=== PATIENT | male | born 1985 | race Native Hawaiian/Other Pacific Islander ===

== ENCOUNTER 2016-12-03 09:40 | Emergency (ER) | payer BC ==
--- NOTE | 2016-12-03 11:03 | ED Physician Documentation ---
History of Present Illness - Stated complaint Stated Complaint: SOA - Chief complaint Chief Complaint: Allergic Rx - Additonal information Additional information: hx from pt 30 male healthy - no hx HTN DM CAD etc approx 2 hr [employer] developed swelling to right side of neck and chest pressure and SOA no diaphoresis no NV no abd pain no leg swelling arrives very tachy but states he had several red bulls prior to arrival Review of Systems Constitutional: denies: Fever, Chills Ears: denies: Ear pain Throat: reports: Other (R sided sweliing posterior to R TMJ region). denies: Sore throat Cardiac: reports: Chest pain / pressure Respiratory: reports: Dyspnea GI: denies: Abdominal Pain Musculoskeletal: denies: Extremity pain, Extremity swelling Endocrine: denies: Easy bruising / bleeding Immunocompromised: denies: Immunocompromised PD PAST MEDICAL HISTORY - Past Medical History Past Medical History: Yes Other Past Medical History: tonsillitis - Past Surgical History Past Surgical History: No - Present Medications Home Medications: Ambulatory Orders Medication Instructions Recorded Confirmed No Known Home Medications [No 12/03/16 12/03/16 Known Home Medications] - Allergies Allergies/Adverse Reactions: Allergies Allergy/AdvReac Type Severity Reaction Status Date / Time No Known Drug Allergies Allergy Verified 12/03/16 09:46 - Social History Does the pt smoke?: Yes Smoking Status: Current every day smoker Does the pt drink ETOH?: Yes Does the pt have substance abuse?: Yes Substance Use and Type: Marijuana PD ED PE NORMAL - Vitals Vital signs reviewed: Yes - General General: Alert and oriented X 3 - HEENT HEENT: PERRL, Other (teeth s tenderness or sig decay, no trismus, R ear mostly occulded but no erythe,a soft swelling ant to ear posterior to TMJ, nonteder, not red or warm, not parotid region) - Neck Neck: Supple, no meningeal sign (see HEENT exam), Other (small crepitus near clavicle) - Cardiac Cardiac: RRR, Other (tachy) - Respiratory Respiratory: No respiratory distress, Clear bilaterally - Abdomen Abdomen: Soft - Derm Derm: Normal color - Extremities Extremities: No deformity, No edema, No calf tenderness / cord - Neuro Neuro: Alert and oriented X 3 Results - Vitals Vitals: Vital Signs - 24 hr 09/18/17 09/18/17 09/18/17 09:43 10:46 13:02 Temperature 36.7 C 36.7 C 36.7 C Heart Rate 129 H 110 H 83 Respiratory 18 16 14 Rate Blood Pressure 174/98 H 154/84 H 133/84 H O2 Saturation 99 100 100 12/03/16 12/03/16 14:21 18:17 Temperature Heart Rate 73 80 Respiratory 16 16 Rate Blood Pressure 135/84 H 131/92 H O2 Saturation 100 99 Oxygen O2 Source Room air - EKG (time done) 0956 Rate: Rate (enter#) Rhythm: Sinus tachycardia Intervals: Normal NM QRS: Normal Ischemia: Other - Labs Labs: Laboratory Tests 12/03/16 12/03/16 12/03/16 11:00 11:00 11:00 WBC 11.2 H RBC 4.60 L Hgb 14.2 Hct 41.8 L MCV 90.7 MCH 30.9 MCHC 34.1 RDW 13.0 Plt Count 243 MPV 7.1 L Neut # 8.6 H Lymph # 1.8 [place] # 0.7 Eos # 0.1 Baso # 0.1 Absolute Nucleated RBC 0.00 Nucleated RBCs 0.0 Sodium 135 Potassium 3.6 Chloride 100 L Carbon Dioxide 27 Anion Gap 8.0 BUN 12 Creatinine 0.9 Estimated GFR (MDRD) 98 Glucose 105 H Calcium 9.4 Total Bilirubin 1.1 H AST 38 ALT 31 Alkaline Phosphatase 49 Troponin I < 0.04 Total Protein 7.7 Albumin 4.8 Globulin 2.9 Albumin/Globulin Ratio 1.7 Lipase 17 L - Rads (name of study) CXR Radiology: See rad report (pneumediastinum with sub cut air up neck) CT neck Radiology: See rad report (extensive soft tissue gas within deep and sup spaces of the neck and epidural gas in cervical and upper thoracci spinal canal, no ademopathy, no ring enhancing fluid collection to suggest abscess, jessy maxillary and R sphenoid sinus mucosal thickening) CTA chest Radiology: See rad report (no PE, prom pneumomediastinum with ST emphysema extending into lower neck and l axillae, no pneumo) PD MEDICAL DECISION MAKING - ED course ED course: pneumomediastinum seen on CXR and further evaluated by CT pt does not report vomiting retching choking or eating any food with bone or other sharp items recently so doubt esophageal no trauma no skin erythema no fever to suggest gas producing bacteria as source was smoking a bong last night and coughing and then worsening sx this AM so suspect barotrauma but is quite extensive - even epidural air - and worsening during ER stay feel pt merits admit for observation - if continues to worsen may need intervention / bronch / EGD those services not avail at or community hospital so will try and transfer to tertiary care facility pt lives in [place] and would prefer to be admitted to [facility] pt (via transfer center) too far for EMS to called [place] Departure - Departure Disposition: 02 Transfer Acute Care Hosp Clinical Impression: Pneumomediastinum Condition: Fair Discharge Date/Time: 12/03/16 18:20
[2016-12-03 11:07] LABS: BASOPHILS # (AUTO) 0.1 10^3/uL (0.0-0.1); BASOPHILS % (AUTO) 0.8 %; EOSINOPHILS # (AUTO) 0.1 10^3/uL (0.0-0.7); EOSINOPHILS % (AUTO) 0.7 %; HCT - HEMATOCRIT 41.8 % (42.0-52.0); HGB - HEMOGLOBIN 14.2 g/dL (14.0-18.0); LYMPHOCYTES # (AUTO) 1.8 10^3/uL (1.5-3.5); LYMPHOCYTES % (AUTO) 15.7 %; MEAN CORPUSCULAR HEMOGLOBIN 30.9 pg (27.0-31.0); MEAN CORPUSCULAR HGB CONC 34.1 g/dL (32.0-36.0); MEAN CORPUSCULAR VOLUME 90.7 fL (80.0-94.0); MEAN PLATELET VOLUME 7.1 fL (7.4-11.4); MONOCYTES # (AUTO) 0.7 10^3/uL (0.0-1.0); MONOCYTES % (AUTO) 6.4 %; NEUTROPHILS # (AUTO) 8.6 10^3/uL (1.5-6.6); NEUTROPHILS % (AUTO) 76.4 %; UNCORRECTED WHITE BLOOD COUNT 11.2 x10^3/uL; WHITE BLOOD COUNT 11.2 x10^3/uL (4.8-10.8)
[2016-12-03] MEDS ORDERED: DEXAMETHASONE 10 MG/ML VIAL PO STA (11:08)
[2016-12-03 11:17] LABS: ALBUMIN/GLOBULIN RATIO 1.7 (1.0-2.2); BILIRUBIN,TOTAL 1.1 mg/dL (0.2-1.0); CALCIUM 9.4 mg/dL (8.5-10.3); CREATININE 0.9 mg/dL (0.6-1.2); POTASSIUM 3.6 mmol/L (3.5-5.0); TOTAL PROTEIN 7.7 g/dL (6.7-8.2)
--- NOTE | 2016-12-03 11:21 | XRAY Preliminary Report ---
Exam: XR Chest 1 View IMPRESSION: 1. Pneumomediastinum and subcutaneous emphysema of the soft tissues of the neck. 2. Small biapical pneumothoraces versus extrapleural air. Consider further detail with chest CT. Findings discussed with Dr. Lewis Following the study at 11:19 AM on 12/03/2016. [facility] SITE ID: [id number]
--- NOTE | 2016-12-03 11:24 | XRAY Report ---
EXAM: CHEST RADIOGRAPHY EXAM DATE: 12/03/2016 11:10 AM. CLINICAL HISTORY: Chest tightness soa. COMPARISON: None. TECHNIQUE: 1 view. FINDINGS: Lungs/Pleura: No consolidation. No vascular congestion. Lucencies are seen about along both lung apic es. Mediastinum: Heart size and mediastinal contour is within normal limits. There is pneumomediastinum n oted extending cephalad. Other: There is subcutaneous air/gas within the soft tissues of the neck bilaterally. IMPRESSION: 1. Pneumomediastinum and subcutaneous emphysema of the soft tissues of the neck. 2. Small biapical pneumothoraces versus extrapleural air. Consider further detail with chest CT. Findings discussed with Dr. Lewis Following the study at 11:19 AM on 12/03/2016. [facility] Referring Provider Line: [phone] SITE ID: [id number]
[2016-12-03] MEDS ORDERED: IOPAMIDOL-300 100 ML VIAL ONE (11:59)
[2016-12-03] MEDS ORDERED: IOPAMIDOL-300 100 ML VIAL IVP ONE (12:41)
--- NOTE | 2016-12-03 13:18 | CT Preliminary Report ---
Exam: CT Neck Soft Tissue W/ IMPRESSION: 1. Extensive soft tissue gas is seen within the deep and superficial spaces of the neck. There is epi dural gas involving the left aspect of the cervical and upper thoracic spinal canal. 2. No bulky lymphadenopathy is seen in the neck. 3. No ring-enhancing fluid collection is seen in the neck to suggest an abscess. 4. Bilateral max a sinus mucosal thickening and right sphenoid air cell mucosal thickening Report phoned to the ordering physician at 1:18 PM on 12/03/2016 [facility] SITE ID: [id number]
--- NOTE | 2016-12-03 13:19 | CT Preliminary Report ---
Exam: CT Chest Angio (PE) IMPRESSION: 1. No pulmonary emboli. 2. Prominent pneumomediastinum with soft tissue emphysema extending into the lower neck and left axil la. 3. No pneumothorax. Case discussed with Dr. Lewis on day of study at 1:15 PM. [facility] SITE ID: [id number]
--- NOTE | 2016-12-03 13:22 | CT Report ---
EXAM: CT ANGIOGRAM CHEST EXAM DATE: 12/03/2016 12:52 PM. CLINICAL HISTORY: Chest pain, shortness of breath. Tachy. Smoked bong yesterday. COMPARISON: None. TECHNIQUE: Routine helical imaging was performed through the chest in the pulmonary arterial phase. I V Contrast: 100 cc Isovue-300. Reconstructions: Coronal 3-D MIP reconstructions.Sagittal and coronal. In accordance with CT protocol optimization, one or more of the following dose reduction techniques w ere utilized for this exam: automated exposure control, adjustment of mA and/or KV based on patient s ize, or use of iterative reconstructive technique. FINDINGS: Pulmonary Arteries: Diagnostic quality: Adequate through the segmental arteries. No evidence for acute or chronic pulmona ry emboli. RV/LV is within normal limits. There is no interventricular septal bowing. There is no reflux of cont rast material in the IVC. Lungs/Pleura: No consolidation, nodules, or edema. No effusions or pneumothorax. Mild left greater than right dependent lower lobe atelectasis. Mediastinum: Prominent pneumomediastinum. No cardiac enlargement or adenopathy. Thoracic Aorta: Unremarkable. Upper Abdomen: Unremarkable. Other: Soft tissue emphysema extending into the lower neck/bilateral supraclavicular regions and left axilla. IMPRESSION: 1. No pulmonary emboli. 2. Prominent pneumomediastinum with soft tissue emphysema extending into the lower neck and left axil la. 3. No pneumothorax. Case discussed with Dr. Lewis on day of study at 1:15 PM. [facility] Referring Provider Line: [phone] SITE ID: [id number]
--- NOTE | 2016-12-03 13:56 | CT Report ---
EXAM: CT SOFT TISSUE NECK EXAM DATE: 12/03/2016 12:52 PM. HISTORY: Neck swelling. Pneumomediastinum. COMPARISONS: CT chest from today. TECHNIQUE: Routine soft tissue neck CT protocol. IV contrast: 100 cc Isovue-370. Reconstructions: Cor onal and sagittal. In accordance with CT protocol optimization, one or more of the following dose reduction techniques w ere utilized for this exam: automated exposure control, adjustment of mA and/or KV based on patient s ize, or use of iterative reconstructive technique. FINDINGS: Soft tissue gas is seen throughout the deep and superficial spaces of the neck in addition in the upp er chest there is gas seen in the left aspect of the spinal canal which is presumed to be in the epid ural space. These changes are also seen in the left aspect of the cervical spinal canal. No subglottic stenosis is present. Aryepiglottic folds are symmetric. Epiglottis is not thickened. Mild soft tissue fullness is seen in the nasopharynx. This is symmetric. Parapharyngeal fat is symmet abigail. There is no mass identified in either submandibular gland or parotid gland. No bulky or cystic/necrotic lymphadenopathy is seen in the neck. Nonenlarged lymph nodes are seen jessy aterally at level I. For findings in the upper chest refer to the patient's chest CT performed today and dictated under parate cover. No mass is seen in either visualized or rib. No enhancing mass is identified in the visualized brain parenchyma. No suspicious lytic or blastic region is seen in the cervical vertebral bodies. Bilateral maxillary sinus mucosal thickening is seen greater on the right relative to the left. Bilat eral ethmoid air cell mucosal thickening is seen. Right sphenoid sinus mucosal thickening is present. IMPRESSION: 1. Extensive soft tissue gas is seen throughout the deep and superficial spaces of the neck. There is epidural gas involving the left aspect of the cervical and upper thoracic spinal canal. 2. No bulky lymphadenopathy is seen in the neck. 3. No ring-enhancing fluid collection is seen in the neck to suggest an abscess. 4. Bilateral maxillary sinus mucosal thickening and right sphenoid air cell mucosal thickening. Report phoned to the ordering physician at 1:18 PM on 12/03/2016. [facility] Referring Provider Line: [phone] SITE ID: [id number]
[2016-12-03 18:19] VITALS: BP 131/92
== END 2016-12-03 18:20 | disposition short-term general hospital (02) ==
LOC: ED 09:40
DX: J98.2 Interstitial emphysema (principal); R00.0 Tachycardia, unspecified; F12.10 Cannabis abuse, uncomplicated; F17.200 Nicotine dependence, unspecified, uncomplicated
CPT/HCPCS: 36415; 70491; 71010; 71275; 80053; 83690; 84484; 85025; 93005; 99284; Q9967